=== PATIENT | female | born 1975 | race Hispanic/Latino ===

== ENCOUNTER 2024-01-25 19:15 | Emergency (ER) | payer SELFPAY ==
[~2024-01-25] VITALS: Ht 167.6 cm; Wt 71.2 kg
[2024-01-25 19:29] VITALS: PULSE 91; RESP 20; TEMP 98.4; O2SAT 100
[2024-01-25] MEDS ORDERED: MUPIROCIN22 GM TOP (19:53)
== END 2024-01-25 20:05 | disposition home or self-care (01) ==
LOC: ER 19:25
DX: R21 Rash and other nonspecific skin eruption (principal)
CPT/HCPCS: 99282